=== PATIENT | male | born 1965 | race Caucasian/White ===

== ENCOUNTER 2019-03-15 17:45 | Inpatient (IN) | payer OTHER ==
[~2019-03-15] VITALS: Ht 172.7 cm; Wt 89.8 kg
[2019-03-15] MEDS ORDERED: SODIUM CHLORIDE 0.9% 1,000 ML IV ONE (18:04)
[2019-03-15 19:43] LABS: BASOPHILS % 0.4 % (0.0-2.0); EOSINOPHILS % 0.4 % (0.0-5.0); HEMATOCRIT. 44.4 % (42.0-52.0); HEMOGLOBIN. 14.9 g/dL (14.0-18.0); LYMPHOCYTES % 24.9 % (20.0-50.0); MEAN CORPUSCULAR HEMOGLOBIN 28.6 pg (28.0-32.0); MEAN CORPUSCULAR VOLUME 84.8 fL (80.0-94.0); MEAN PLATELET VOLUME 7.9 fl (7.4-10.4); MONOCYTES % 5.5 % (2.0-8.0); NEUTROPHILS % 68.8 % (40.0-76.0); PLATELET 260 x1000/uL (130-400); RED BLOOD CELL COUNT 5.23 mill/uL (4.7-6.1); RED CELL DISTRIBUTION WIDTH 14.2 % (11.6-14.6)
[2019-03-15 19:49] LABS: CHLORIDE 102 mEq/L (98-107)
[2019-03-16] VITALS (9 sets, daily range): BP systolic 116–163; BP diastolic 72–97
[2019-03-16 08:13] LABS: *AMPHETAMINES SCREEN URINE NEGATIVE (NEGATIVE)
[2019-03-16 08:14] LABS: *BARBITURATES SCREEN URINE NEGATIVE (NEGATIVE); *BENZODIAZEPINES SCREEN URINE NEGATIVE (NEGATIVE); *COCAINE SCREEN URINE NEGATIVE (NEGATIVE); CANNABINOID URINE SCREEN NEGATIVE (NEGATIVE); METHADONE URINE SCREEN NEGATIVE (NEGATIVE); OPIATES URINE SCREEN NEGATIVE (NEGATIVE); PHENCYCLIDINE URINE SCREEN NEGATIVE (NEGATIVE)
[2019-03-16] MEDS: SODIUM CHLORIDE 0.9% INJ 3ML FLUSH IVF SCH ×2 (14:00→22:23)
[2019-03-16] MEDS ORDERED: MAGNESIUM/ALUMINUM HYDROXIDE/SIMETHICONE 30ML UDC PO PRN (14:00)
[2019-03-16] MEDS ORDERED: CLONIDINE 0.1MG TABLET PO PRN (14:00)
[2019-03-16] MEDS ORDERED: GUAIFENESIN 200MG/10ML SUGAR FREE UDC PO PRN (14:00)
[2019-03-16] MEDS ORDERED: DIPHENHYDRAMINE 50MG/ML VIAL IV PRN (14:00)
[2019-03-16] MEDS ORDERED: ONDANSETRON HCL 4MG/2ML INJ IV PRN (14:00)
[2019-03-16] MEDS: ACETAMINOPHEN 325MG TABLET PO PRN (18:05)
[2019-03-16] MEDS: FAMOTIDINE 20MG TABLET PO SCH (22:23)
[2019-03-17] VITALS (12 sets, daily range): BP systolic 100–150; BP diastolic 50–96
[2019-03-17] MEDS: SODIUM CHLORIDE 0.9% INJ 3ML FLUSH IVF SCH ×3 (06:22→20:45)
[2019-03-17 06:44] LABS: BASOPHILS % 0.4 % (0.0-2.0); EOSINOPHILS % 1.5 % (0.0-5.0); HEMATOCRIT. 43.2 % (42.0-52.0); HEMOGLOBIN. 13.9 g/dL (14.0-18.0); LYMPHOCYTES % 31.5 % (20.0-50.0); MEAN CORPUSCULAR HEMOGLOBIN 27.6 pg (28.0-32.0); MEAN CORPUSCULAR VOLUME 85.6 fL (80.0-94.0); MEAN PLATELET VOLUME 8.2 fl (7.4-10.4); MONOCYTES % 6.7 % (2.0-8.0); NEUTROPHILS % 59.9 % (40.0-76.0); PLATELET 216 x1000/uL (130-400); RED BLOOD CELL COUNT 5.05 mill/uL (4.7-6.1); RED CELL DISTRIBUTION WIDTH 14.3 % (11.6-14.6)
[2019-03-17 07:12] LABS: CHLORIDE 107 mEq/L (98-107)
[2019-03-17 07:18] LABS: PHOSPHORUS 4.1 mg/dL (2.5-4.9)
[2019-03-17] MEDS: FAMOTIDINE 20MG TABLET PO SCH (20:45)
[2019-03-18] VITALS (10 sets, daily range): BP systolic 107–152; BP diastolic 68–96
[2019-03-18] MEDS: SODIUM CHLORIDE 0.9% INJ 3ML FLUSH IVF SCH ×3 (06:35→20:31)
[2019-03-18 11:49] LABS: HEPATITIS B SURFACE ANTIGEN NEGATIVE
[2019-03-18] MEDS ORDERED: GADOBENATE DIMEGLUMINE 529 MG/ML 10ML IV ONE (19:01)
[2019-03-18] MEDS: ACETAMINOPHEN 325MG TABLET PO PRN (20:30)
[2019-03-18] MEDS: FAMOTIDINE 20MG TABLET PO SCH (20:30)
[2019-03-19] VITALS (11 sets, daily range): BP systolic 96–155; BP diastolic 56–92
[2019-03-19] MEDS: SODIUM CHLORIDE 0.9% INJ 3ML FLUSH IVF SCH ×3 (06:27→21:12)
[2019-03-19] MEDS: ACETAMINOPHEN 325MG TABLET PO PRN (13:36)
[2019-03-19] MEDS ORDERED: HYDROCODONE/ACETAMINOPHEN 5/325MG TABLET PO PRN (14:15)
[2019-03-19] MEDS: FAMOTIDINE 20MG TABLET PO SCH (21:12)
[2019-03-19] MEDS: ACYCLOVIR 800MG TABLET PO SCH (21:36)
[2019-03-19] MEDS: BIKTARVY 50-200-25MG TABLET PO SCH (21:36)
[2019-03-20] VITALS (12 sets, daily range): BP systolic 106–134; BP diastolic 69–96
[2019-03-20] MEDS: SODIUM CHLORIDE 0.9% INJ 3ML FLUSH IVF SCH ×3 (04:59→20:47)
[2019-03-20 09:07] LABS: ABSOLUTE EOSINOPHILS 0.1 x10E3/uL (0.0-0.4); ABSOLUTE LYMPHOCYTES 2.3 x10E3/uL (0.7-3.1); ABSOLUTE MONOCYTES 0.3 x10E3/uL (0.1-0.9); ABSOLUTE NEUTROPHILS 2.9 x10E3/uL (1.4-7.0); BASOPHILS 0 % (Not Estab.); HEMATOCRIT 42.5 % (37.5-51.0); HEMOGLOBIN 13.8 g/dL (13.0-17.7); IMMATURE GRANULOCYTES 0 % (Not Estab.); LYMPHOCYTES 41 % (Not Estab.); MEAN CORPUSCULAR HEMOGLOBIN 28.5 pg (26.6-33.0); MEAN CORPUSCULAR HGB CONC. 32.5 g/dL (31.5-35.7); MEAN CORPUSCULAR VOLUME 88 fL (79-97); MONOCYTES 5 % (Not Estab.); NEUTROPHILS 51 % (Not Estab.); PLATELETS 224 x10E3/uL (150-450); RBC 4.84 x10E6/uL (4.14-5.80); RED CELL DISTRIBUTION WIDTH 14.5 % (11.6-15.4); WBC 5.6 x10E3/uL (3.4-10.8)
[2019-03-20 10:08] LABS: % CD 3 POS. LYMPHOCYTES 65.1 % (57.5-86.2); % CD 4 POS. LYMPHOCYTES 6.7 % (30.8-58.5); ABSOLUTE CD 3 1497 /uL (622-2402); ABSOLUTE CD 4 HELPER 154 /uL (359-1519); ABSOLUTE CD 8 SUPPRESSOR 1311 /uL (109-897); CD4/CD8 RATIO 0.12 (0.92-3.72)
[2019-03-20 19:10] LABS: ANTI-NUCLEAR ANTIBODIES DIRECT Negative (Negative)
[2019-03-20] MEDS: FAMOTIDINE 20MG TABLET PO SCH (20:45)
[2019-03-20] MEDS: ACYCLOVIR 800MG TABLET PO SCH (20:46)
[2019-03-20] MEDS: BIKTARVY 50-200-25MG TABLET PO SCH (20:46)
[2019-03-21] VITALS (10 sets, daily range): BP systolic 99–149; BP diastolic 67–99
[2019-03-21] MEDS: SODIUM CHLORIDE 0.9% INJ 3ML FLUSH IVF SCH ×2 (05:07→14:22)
[2019-03-21 15:15] LABS: ATYPICAL P-ANCA <1:20 titer (Neg:<1:20); CYTOPLASMIC C-ANCA <1:20 titer (Neg:<1:20); PERINUCLEAR P-ANCA <1:20 titer (Neg:<1:20)
[2019-03-22 12:21] LABS: ANTI-MYELOPEROXIDASE AB < 9.0 U/mL (0.0-9.0); ANTI-PROTEINASE 3 ABS < 3.5 U/mL (0.0-3.5)
== END 2019-03-21 17:35 | disposition home or self-care (01) | DRG 974 ==
LOC: ER 17:45 → 3WST 03-16 04:19 → ENRESERV 03-16 07:41
PROVIDERS: ADMIT Internal Medicine; ATTEND Internal Medicine
DX: A86 Unspecified viral encephalitis (principal); G03.9 Meningitis, unspecified; B20 Human immunodeficiency virus [HIV] disease; G93.6 Cerebral edema; G93.41 Metabolic encephalopathy; G81.91 Hemiplegia, unspecified affecting right dominant side; G25.3 Myoclonus; Z53.29 Procedure and treatment not carried out because of patient's decision for other reasons; W18.30XA Fall on same level, unspecified, initial encounter; S00.83XA Contusion of other part of head, initial encounter; Y93.89 Activity, other specified; Y92.89 Other specified places as the place of occurrence of the external cause; Y99.8 Other external cause status
CPT/HCPCS: 36415; 70551; 70552; 72148; 80053; 80076; 80305; 82248; 83520; 83735; 84100; 85025; 85651; 86038; 86256; 86359; 86360; 86592; 86803; 87340; 93005; 93970; 97116; 97162; 97167; 97530; 97535; 99285; A9577; J7030